=== PATIENT | male | born 1950 | race Caucasian/White ===

== ENCOUNTER 2025-08-17 09:50 | Outpatient (CLI) | payer MEDICARE | END 2025-08-17 09:51 | disposition home or self-care (01) | LOC: CSHSLEEP 09:50 | PROVIDERS: ATTEND Otolaryngology Otolaryngic Allergy | DX: G47.33 Obstructive sleep apnea (adult) (pediatric) (principal); G47.9 Sleep disorder, unspecified; R53.83 Other fatigue | CPT/HCPCS: 95800 ==